=== PATIENT | female | born 1980 | race Two or more races ===

== ENCOUNTER 2020-11-18 13:16 | Emergency (ER) | payer OTHER ==
[~2020-11-18] VITALS: Ht 152.4 cm; Wt 63.6 kg
--- NOTE | 2020-11-18 14:59 | RAD ---
EXAM: Head CT without contrast; cervical spine CT without contrast; axial facial bone CT without cont rast. HISTORY: Dizziness. Facial pain. TECHNIQUE: Computed tomographic images of the head, maxillofacial bones and cervical spine were obtai simeon without contrast. *One or more of the following individualized dose reduction techniques were utilized for this examina tion: 1. Automated exposure control. 2. Adjustment of the mA and/or kV according to patient size. 3. Use of iterative reconstruction technique. COMPARISON: None. FINDINGS: Head: There is no hemorrhage. There is no mass effect or midline shift. There is no hydrocephalus. Th ere is incidental cavum septum pellucidum et vergae. The pascual-white matter differentiation pattern is intact. There is a small calcification within the cortex or sulcus of the superior medial right fron joseph lobe. No calvarial lesion is seen. There is minimal mastoid fluid. Maxillofacial bones: There is minimal ethmoid sinus mucosal thickening. The ostiomeatal units are pat ent. There is no significant nasal septal deviation. The temporomandibular joints are intact. There a re incidental unruptured third molars. The orbits are unremarkable. Cervical spine: There is no listhesis. The vertebral arrieta are normal in height and the disc spaces ar e preserved. There is no fracture or suspicious osseous lesion. There is mild facet arthropathy at mu ltiple levels. There is mild left foraminal stenosis at C6-C7. The lung apices are unremarkable. The airway is midline. IMPRESSION: No acute intracranial finding or evidence of acute maxillofacial bone trauma or cervical spine trauma. Electronically signed by: Grecia Quiles MD (11/18/2020 2:56 PM) [facility]
--- NOTE | 2020-11-18 15:17 | PHYS DOC ---
Past Medical History Past Medical History: Anemia Past Surgical History: , Hysterectomy Smoking Status: Never Smoker Alcohol Use: None General Adult EDM: Chief Complaint: HEAD INJURY/TRAUMA HPI: HPI: Patient is a 40 year old female who presents with patient was at work today when a box of [employer] came down off the shelf and hit her in the left side of the head. She has left forehead pain, eye and ear pain. She also complains of dizziness and some nausea. She states it is a throbbing type pain. She rates her pain a 4 out of 10. She denies losing consciousness and she does not take blood thinners. She did not fall. She states she has very little pain in her neck but full range of motion of the neck. She denies vision changes, syncope, falling, numbness or tingling, vomiting, chest pain, shortness of breath, focal weakness. She has a history of , anemia, hysterectomy. She states that she went to [employer] [facility] the did not do anything but sent her over for a CT of the head. Review of Systems: Review of Systems: Constitutional: Denies fever or chills. [] Eyes: Denies change in visual acuity. + Left eye pain [] HENT: Denies nasal congestion or sore throat. + Left forehead pain. + Left ear pain [] Respiratory: Denies cough or shortness of breath. [] Cardiovascular: Denies chest pain or edema. [] GI: Denies abdominal pain, +nausea, denies vomiting, bloody stools or diarrhea. [] : Denies dysuria. [] Musculoskeletal: Denies back pain or joint pain. [] Integument: Denies rash. [] Neurologic: + headache, focal weakness or sensory changes. + Dizziness [] Endocrine: Denies polyuria or polydipsia. [] Lymphatic: Denies swollen glands. [] Psychiatric: Denies depression or anxiety. [] Heart Score: C/O Chest Pain: No Risk Factors: Risk Factors: DM, Current or recent (<one month) smoker, HTN, HLP, family history of CAD, obesity. Risk Scores: Score 0 - 3: 2.5% MACE over next 6 weeks - Discharge Home Score 4 - 6: 20.3% MACE over next 6 weeks - Admit for Clinical Observation Score 7 - 10: 72.7% MACE over next 6 weeks - Early Invasive Strategies Allergies: Allergies: Allergies Coded Allergies Type Severity Reaction Last Updated Verified No Known Drug Allergies 11/18/20 No Physical Exam: PE: Constitutional: Well developed, well nourished, no acute distress, non-toxic appearance. [] HENT: Normocephalic, atraumatic, bilateral external ears normal, oropharynx moist, no oral exudates, nose normal. [] Eyes: PERRLA, EOMI, conjunctiva normal, no discharge. [] Neck: Normal range of motion, no tenderness, supple, no stridor. [] Cardiovascular:Heart rate regular rhythm, no murmur [] Lungs & Thorax: Bilateral breath sounds clear to auscultation [] Abdomen: Bowel sounds normal, soft, no tenderness, no masses, no pulsatile masses. [] Skin: Warm, dry, no erythema, no rash. Slight left forehead bruising and there is some tenderness. [] Back: No tenderness, no CVA tenderness. [] Extremities: No tenderness, no cyanosis, no clubbing, ROM intact, no edema. [] Neurologic: Alert and oriented X 3, normal motor function, normal sensory function, no focal deficits noted. [] Psychologic: Affect normal, judgement normal, mood normal. [] Current Patient Data: Vital Signs: Vital Signs Date Time Temp Pulse Resp B/P (MAP) Pulse Ox O2 Delivery O2 Flow Rate FiO2 11/18/20 14:02 98.2 76 16 112/63 (79) 100 Room Air 98.2 EKG: EKG: [] Radiology/Procedures: Radiology/Procedures: [] Impression: [facility] [id number] [place], [place] [id number] IMAGING REPORT Signed PATIENT: JARED SMITHACCOUNT: [id number] : 1980 LOCATION: ER AGE: 40 SEX: F EXAM STATUS: REG ER ORD. PHYSICIAN: RAPHAEL PITTS APRN REASON: HEAD INJURY, DIZZINESS, RIGHT FACIAL PAIN PROCEDURE: CT HEAD AND CERVICAL SPINE WO EXAM: Head CT without contrast; cervical spine CT without contrast; axial facial bone CT without contrast. HISTORY: Dizziness. Facial pain. TECHNIQUE: Computed tomographic images of the head, maxillofacial bones and cervical spine were obtained without contrast. *One or more of the following individualized dose reduction techniques were utilized for this examination: 1. Automated exposure control. 2. Adjustment of the mA and/or kV according to patient size. 3. Use of iterative reconstruction technique. COMPARISON: None. FINDINGS: Head: There is no hemorrhage. There is no mass effect or midline shift. There is no hydrocephalus. There is incidental cavum septum pellucidum et vergae. The pascual-white matter differentiation pattern is intact. There is a small calcification within the cortex or sulcus of the superior medial right frontal lobe. No calvarial lesion is seen. There is minimal mastoid fluid. Maxillofacial bones: There is minimal ethmoid sinus mucosal thickening. The ostiomeatal units are patent. There is no significant nasal septal deviation. The temporomandibular joints are intact. There are incidental unruptured third molars. The orbits are unremarkable. Cervical spine: There is no listhesis. The vertebral arrieta are normal in height and the disc spaces are preserved. There is no fracture or suspicious osseous lesion. There is mild facet arthropathy at multiple levels. There is mild left foraminal stenosis at C6-C7. The lung apices are unremarkable. The airway is midline. IMPRESSION: No acute intracranial finding or evidence of acute maxillofacial bone trauma or cervical spine trauma. Electronically signed by: Grecia Leonard MD (11/18/2020 2:56 PM) [facility] DICTATED and SIGNED BY: GRECIA LEONARD MD DATE: 11/18/20 [id number] 0 Course & Med Decision Making: Course & Med Decision Making Pertinent Labs and Imaging studies reviewed. (See chart for details) See HPI. Alert and oriented x4. Ambulatory with a steady gait. Speaks in full clear sentences. Full range of motion of her neck. No focal bony spinal tenderness. No deformity, abrasion, lacerations to her face, skull or the rest of her body. Moving all extremities with equal strengths. PERRLA. No nystagmus. Left ear tympanic is intact and there is no redness or drainage. No swelling to the left eye or redness. No signs of trauma. [] Dragon Disclaimer: Dragon Disclaimer: This electronic medical record was generated, in whole or in part, using a voice recognition dictation system. Departure Departure Impression: Primary Impression: Head injury Qualified Codes: S09.90XA - Unspecified injury of head, initial encounter Additional Impressions: Dizziness Nausea Disposition: 01 HOME / SELF CARE / HOMELESS Condition: STABLE Referrals: NO PCP (PCP) Patient Instructions: Head Injury, Adult Additional Instructions: Follow-up with a primary care physician if needed. Take Tylenol or ibuprofen for any of your pain. Drink plenty of fluids. If you begin having severe headache or lose consciousness or severe dizziness return emergency room. RAPHAEL PITTS COMMUNICATIONS FIELD TECHNICIAN November 18, 2020 15:17
[2020-11-18 15:36] VITALS: BP 109/63
[2020-11-18] MEDS ORDERED: IBUPROFEN 200 MG TABLET. PO ONE (15:45)
[2020-11-18] MEDS ORDERED: ONDANSETRON ODT 4 MG TAB.RAPDIS. PO ONE (15:45)
[2020-11-18] MEDS ORDERED: MECLIZINE HCL 12.5 MG TABLET. PO ONE (15:45)
== END 2020-11-18 15:36 | disposition home or self-care (01) ==
LOC: ER 13:16
DX: S09.90XA Unspecified injury of head, initial encounter (principal); R42 Dizziness and giddiness; R11.0 Nausea; H92.02 Otalgia, left ear; M54.2 Cervicalgia; W18.09XA Striking against other object with subsequent fall, initial encounter; Y93.89 Activity, other specified; Y92.69 Other specified industrial and construction area as the place of occurrence of the external cause; Y99.0 Civilian activity done for income or pay
CPT/HCPCS: 70450; 70486; 72125; 99285; J8597